=== PATIENT | male | born 1965 | race Caucasian/White ===

== ENCOUNTER 2018-08-25 10:22 | Emergency (ER) | payer MEDICAID ==
[~2018-08-25] VITALS: Ht 167.6 cm; Wt 59.0 kg
--- NOTE | 2018-08-25 10:33 | NUR ---
PT AMBULATES TO BED 2
--- NOTE | 2018-08-25 10:33 | NUR ---
PT PRESENTS TO ED WITH C/O HEADACHE X5DAYS. PATIENT RATES PAIN 5/10. PATIENT DENIES ANY MEDICAL HX
[2018-08-25 10:35] VITALS: BP 150/89
[2018-08-25 12:14] VITALS: BP 135/84
--- NOTE | 2018-08-25 12:16 | NUR ---
Patient discharged with v/s stable. Written and verbal after care instructions given and explained. Patient alert, oriented and verbalized understanding of instructions. Ambulatory with steady gait. All questions addressed prior to discharge. ID band removed. Patient advised to follow up with PMD. Rx of LISINOPRIL given. Patient educated on indication of medication including possible reaction and side effects. Opportunity to ask questions provided and answered.
[2018-08-26] MEDS ORDERED: LISINOPRIL 20 MG TAB PO SCH (09:00)
== END 2018-08-25 12:16 | disposition home or self-care (01) ==
LOC: MED 10:22
DX: I10 Essential (primary) hypertension (principal); R51 Headache
CPT/HCPCS: 93005; 99283

== ENCOUNTER 2022-04-13 21:05 | Emergency (ER) | payer MEDICAID, OTHER ==
[~2022-04-13] VITALS: Ht 165.1 cm; Wt 70.3 kg
[2022-04-13 21:32] VITALS: BP 156/65
--- NOTE | 2022-04-13 21:36 | NUR ---
TO LOBBY FOLLOWING TRIAGE
--- NOTE | 2022-04-13 22:07 | NUR ---
PT RETURN FROM [facility] TO [facility]
--- NOTE | 2022-04-14 00:44 | NUR ---
Dr. Gunderson examining patient.
[2022-04-14] MEDS ORDERED: NAPR-54 PO (01:24)
[2022-04-14] MEDS ORDERED: ACET-10509 PO (01:24)
[2022-04-14 01:45] VITALS: BP 145/82
--- NOTE | 2022-04-14 01:45 | NUR ---
Patient discharged with v/s stable. Written and verbal after care instructions given and explained for Upper respiratory Infection. Patient alert, oriented and verbalized understanding of instructions. Ambulatory with steady gait. All questions addressed prior to discharge. ID band removed. Patient advised to follow up with PMD. Rx of Naproxen and Tylenol given. Patient educated on indication of medication including possible reaction and side effects. Opportunity to ask questions provided and answered.
== END 2022-04-14 01:45 | disposition home or self-care (01) ==
LOC: MED 21:05
DX: B34.9 Viral infection, unspecified (principal); Z20.822 Contact with and (suspected) exposure to COVID-19; I10 Essential (primary) hypertension
CPT/HCPCS: 71045; 99284